=== PATIENT | female | born 1950 | race Caucasian/White ===

== ENCOUNTER 2022-07-08 15:57 | Observation (INO) | payer MEDICARE, SELFPAY ==
[2022-07-08] VITALS (11 sets, daily range): BP systolic 140–187; BP diastolic 65–131; PULSE 70–89; RESP 12–26; TEMP 35.7–37; O2SAT 82–100; BMI 25.6
--- NOTE | 2022-07-08 15:59 | NURSING ---
STROKE ALERT CALLED 1545, ETA IS 20 MIIN
--- NOTE | 2022-07-08 16:05 | CT_ITS ---
EXAM: CT ABDOMEN AND PELVIS WITH INTRAVENOUS CONTRAST CLINICAL INDICATION: lower abd pain TECHNIQUE: Helically acquired images were obtained of the abdomen and pelvis with intravenous contrast. This CT exam was performed using one or more of the following dose reduction techniques: automated exposure control, adjustment of the mA and/or kV according to patient size, and/or use of iterative reconstruction technique. CONTRAST: IV 100mL [id number] COMPARISON: 09/05/2014 FINDINGS: LOWER THORAX: Unremarkable. Lung bases are clear. No cardiomegaly. No significant pericardial effusion. ABDOMEN: LIVER: Unremarkable. Homogeneous. No focal mass. GALLBLADDER AND BILE DUCTS: Unremarkable. No calcified gallstones. No gallbladder distention or wall edema. No intra- or extrahepatic biliary ductal dilation. PANCREAS: Unremarkable. No focal cystic or solid mass. SPLEEN: Unremarkable. Normal size without focal cystic or solid mass. ADRENALS: Unremarkable. No nodules. KIDNEYS AND URETERS: Unremarkable. Normal renal size and position. No hydronephrosis. STOMACH AND BOWEL: Unremarkable. No stomach or bowel distention. No focal inflammatory change. PELVIS: APPENDIX: No evidence of acute appendicitis. BLADDER: Unremarkable. REPRODUCTIVE: Unremarkable as visualized. No mass. ABDOMEN and PELVIS: INTRAPERITONEAL SPACE: Unremarkable. No ascites or other fluid collection. No free air. BONES/JOINTS: Unremarkable. No suspicious lytic or blastic abnormality. SOFT TISSUES: Unremarkable. No discrete abdominal or pelvic wall hernia. VASCULATURE: Unremarkable. Abdominal aorta is non-dilated. LYMPH NODES: Unremarkable. No enlarged lymph nodes. CT/Abdomen/Pelvis W IV Cont ONLY IMPRESSION: Negative CT of the abdomen and pelvis with intravenous contrast. Electronically Signed: Gilbert Bob MD at 17:09 EDT ,
--- NOTE | 2022-07-08 16:05 | CT_ITS ---
EXAM: CT HEAD WITHOUT INTRAVENOUS CONTRAST CLINICAL INDICATION: confusion TECHNIQUE: Multiple axial images were obtained of the head without intravenous contrast. This CT exam was performed using one or more of the following dose reduction techniques: automated exposure control, adjustment of the mA and/or kV according to patient size, and/or use of iterative reconstruction technique. COMPARISON: No relevant prior studies available. FINDINGS: BRAIN AND EXTRA-AXIAL SPACES: Ventricular system and cortical sulci are at the upper limits of normal in size. No intra- or extra-axial hemorrhage. No evidence of acute infarct. No intracranial mass or mass effect. There is preservation of the harrison/white matter interface. Posterior fossa structures are unremarkable. Basal cisterns are patent. BONES/JOINTS: Unremarkable. No discrete lytic or blastic abnormalities. SINUSES: Unremarkable as visualized. Clear. MASTOID AIR CELLS: Unremarkable. Clear. ORBITS: Visualized globes, extraocular muscles, optic nerves and retrobulbar fat appear unremarkable. CT/Brain/Head without Contrast IMPRESSION: No acute findings in the head/brain. Electronically Signed: Gilbert Bob MD at 17:01 EDT ,
--- NOTE | 2022-07-08 16:07 | EDS_ITS ---
HPI History of Present Illness Chief Complaint: General Illness Informant: patient Narrative Narrative: Patient presents 1600 by EMS after family called because she is confused and having abdominal pain. Apparently she woke up this way, she usually is alert and oriented x3, this is very unusual for her. EMS called a prehospital stroke alert because she was confused, very hypertensive, and was unable to perform test for upper extremity pronator drift. They detected no lateralizing findings. I saw the patient in the EMS bay upon arrival. Limited history due to the patient being confused, but she is pointing to her left lower quadrant saying she is in extreme pain and moaning. [facility] Medical History (Updated 07/08/22 @ 17:[address] Danyel Case MD) Depression Medical History unable to obtain unable to obtain Home Medications escitalopram oxalate 10 mg tablet 15 mg PO DAILY 09/01/14 [History Last Taken 09/05/14 08:00] ciprofloxacin HCl 250 mg tablet 250 mg PO BID ##10 09/03/14 [Rx Last Taken 09/05/14 08:00] metronidazole 500 mg tablet 500 mg PO Q8H #15 tabs 09/03/14 [Rx Last Taken 09/05/14 13:00] oxycodone 5 mg tablet 5 mg PO Q4H PRN PRN Moderate Pain (pain scale 4-5) ##20 09/03/14 [Rx Last Taken 09/05/14 17:00] ondansetron HCl 8 mg tablet 8 mg PO Q8H PRN PRN Nausea/Vomiting ##14 09/07/14 [Rx Last Taken Unknown] zolpidem 5 mg tablet 5 mg PO QHS PRN PRN Insomnia ##20 09/07/14 [Rx Last Taken Unknown] amitriptyline 50 mg tablet 50 mg 07/08/22 [History Last Taken Unknown] naproxen 500 mg tablet 500 mg 07/08/22 [History Last Taken Unknown] Allergy/AdvReac Type Severity Reaction Status Date / Time Penicillins AdvReac Rash Verified 09/05/14 20:16 Social History Smoking Status: Never smoker ROS ROS ED Review of Systems ROS Unobtainable: due to mental status Gastrointestinal Gastrointestinal: Reports abdominal pain EXAM Physical Exam Const Vital Signs: 07/08/22 15:58 07/08/22 16:05 07/08/22 17:50 Temperature 96.3 F L Temperature Source Temporal Pulse Rate 82 89 Respiratory Rate 19 H 26 H Blood Pressure 187/131 H 156/65 H Blood Pressure Mean 149 95 Pulse Ox 96 99 Oxygen Delivery Method Room Air Oxygen Flow Rate (L/min) 07/08/22 17:03 07/08/22 17:04 07/08/22 17:37 Temperature Temperature Source Pulse Rate 73 82 Respiratory Rate 16 17 Blood Pressure 180/90 H 164/81 H Blood Pressure Mean 120 108 Pulse Ox 82 96 96 Oxygen Delivery Method Room Air Nasal Cannula Nasal Cannula Oxygen Flow Rate (L/min) 4 4 Positive well nourished and well developed Constitutional Narrative: Acute painful distress, keenly alert. Confused. General Appearance ED: well developed HEENT Reports moist mucous membranes normocephalic and atraumatic Eyes PERRL and EOMs intact bilaterally Neck full ROM and supple Chest Wall inspection of chest normal and palpation of chest normal Resp normal respiratory effort and clear to auscultation bilaterally Resp Narrative: Tachypnea, moaning and screaming in pain, equal breath sounds bilaterally trachea midline otherwise sounds clear. Cardio regular rate, regular rhythm and no murmurs Rate: Negative for tachycardic GI non-distended GI Narrative: Extremely tender suprapubic and left lower quadrant with voluntary guarding, nontender above throughout. No pulsatile mass palpable. During exam, performed ultrasound of the abdomen, very limited view, I am not able to visualize the aorta. I do visualize the liver, and the right kidney there is no free fluid in Morison's pouch. Auscultation: normoactive bowel sounds Palpation: soft Back/Spine no CVA tenderness Back/Spine Narrative: Normal inspection of back General Back: other FROM Extremity normal to inspection Extremity Narrative: Warm feet with brisk cap refill all toes, not able to palpate pulses because patient will not stop moving her legs. Intact bilateral 2+ symmetric radial pulses. General Extremety ED: Negative for edema, pulses abnormal or tenderness General Extremity: Negative for edema or pulses abnormal Neuro CN's II-XII intact bilaterally and no sensory deficits noted Neuro Narrative: Oriented to person only. She is moving all 4 extremities, she can follow some commands, but not all. Grossly nonlateralizing neurologic exam. Sensorium / Orientation: awake, alert and orientation impaired Skin no rashes or lesions noted and no wounds MDM MDM MDM Narrative Medical decision making narrative: I canceled the stroke alert since the patient does not appear to be having an acute stroke, nor would she be a thrombolytic candidate anyway. I did still obtain a CT of the head, as well as a CT of the abdomen/pelvis with IV contrast, I reviewed prior labs she has not had any since 2014, but I discussed with staff and CT to get imaging obtained stat before we wait for labs. This was done. I reviewed the images of her head and abdomen/pelvis, and frankly they all look completely unremarkable. I reevaluated the patient, she is still moaning and fairly hysterical after giving her fentanyl. More analgesics ordered. Her sister is here now. She states that she has done this several times in the past, and gets hysterical and panicky over a bellyache. She also states she has done this in the past for pity. Additionally, she states she has overdosed in the past but cannot get an answer from the patient about whether she took her pills or not this morning, in the past the sister states she has done this with her antidepressants. Asking the patient again orientation questions, she knows that she is here in the hospital in [place], [place]. She would not answer the year/timing. She is extremely anxious, still tachypneic and moaning, denying dyspnea. She states that her abdomen still hurts and she is hyperventilating and moaning. Nursing to give morphine and dicyclomine, still awaiting official results of CTs, I reviewed her chest x-ray 1 view on my interpretation is normal without pneumothorax, infiltrate/pneumonia, or widened mediastinum. Nurses placed a Bolton, there is good urine output it is normal-appearing, and the urinalysis shows no signs of infection. My interpretation of the both CT head and abdomen/pelvis is in agreement with that of the radiologist. Basically negative for any acute. Urinalysis neg ative, the rest of her labs are negative. I reevaluated patient after the morphine and dicyclomine. She states her abdomen is a lot better. I reexamined her abdomen, she is not guarding or having rebound tenderness, but she is simply moaning and hyperventilating and cannot tell me yes or no if she still has tenderness or not. She is extremely hypertensive, so I am treating that. She is not hypoxic. Again nonlateralizing neurologic exam, but seems to some degree encephalopathic for unclear reasons. Her EKG and labs are inconsistent with an acute amitriptyline overdose, she does appear to be on amitriptyline according to the bottles of medications that were brought with her, in addition to escitalopram and Naprosyn. I sent for a lactate, and alcohol, and a urine drug screen; her focal complaint of left lower quadrant abdominal pain is inconsistent with acute mesenteric ischemia. Nursing went to treat her with hydralazine, but now her blood pressure is 156/65 prior to treatment, so we held it. The patient is less hysterical, but very confused, and now tells me that she did not sleep well last night can she have something for sleeping, but she still cannot answer direct questions appropriately. She needs to be admitted for further observation and possible testing, I think this is less likely to be a brainstem stroke, but possibly an MRI of the brain urgently not emergently could be helpful as well. She does not have definite cortical symptoms or aphasia, so I do not think she needs emergent vascular imaging. History & Record Review Discussion w/independent historian: EMS personnel, Patient and Family Additional record(s) reviewed:: Prior ED visit (2014, abd pain/n/v) and Prior l abs Lab Data Attestation: I reviewed the patient's lab results. Labs: Laboratory Results - last 24 hr 07/08/22 07/08/22 07/08/22 15:52 15:52 16:36 WBC 10.3 RBC 4.24 Hgb 12.8 Hct 38.6 MCV 91.0 MCH 30.2 MCHC 33.2 RDW Std Deviation 44.3 H RDW Coeff of Gus 13.3 Plt Count 272 MPV 9.8 Immature Gran % (Auto) 0.500 Neut % (Auto) 84.8 H Lymph % (Auto) 9.7 L [place] % (Auto) 4.5 Eos % (Auto) 0.1 Baso % (Auto) 0.4 Absolute Neuts (auto) 8.7 H Absolute Lymphs (auto) 0.99 Nucleated RBC % 0 Sodium 140 Potassium 4.1 Chloride 109 H Carbon Dioxide 25.0 Anion Gap 6 BUN 20 H Creatinine 0.49 L Estim Creat Clear Calc 37.24 Est GFR (MDRD) Af Amer 157 Est GFR (MDRD) Non-Af 130 BUN/Creatinine Ratio 40.5 H Glucose 115 H Calcium 9.3 Total Bilirubin 0.90 AST 34 ALT 63 H Alkaline Phosphatase 139 H Troponin I High Sens 15 Total Protein 7.2 Albumin 4.1 Globulin 3.1 Albumin/Globulin Ratio 1.3 Urine Color Yellow Urine Clarity Sl. Cloudy Urine pH 8.0 Ur Specific [place] 1.010 Urine Protein Negative Urine Glucose (UA) Normal Urine Ketones 15 H Urine Occult Blood Negative Urine Nitrite Negative Urine Bilirubin Negative Urine Urobilinogen Normal Ur Leukocyte Esterase Negative Urine RBC 0 SEEN Urine WBC 0 SEEN Ur Squamous Epith Cells 0-5 SEEN Amorphous Sediment 3+ PHOS Urine Bacteria 0 SEEN Urine Mucus 0 SEEN Radiography Chest X-Ray - ED: 1 View, Read by ED Physician and No Infiltrates Diagnostic Testing: Clinical Impression(s) from Imaging Studies Abdomen/Pelvis CT 07/08/22 16:05 IMPRESSION: Negative CT of the abdomen and pelvis with intravenous contrast. Electronically Signed: Gilbert Bob MD at 17:09 EDT , Brain CT 07/08/22 16:05 IMPRESSION: No acute findings in the head/brain. Electronically Signed: Gilbert Bob MD at 17:01 EDT , Chest X-Ray 07/08/22 16:40 IMPRESSION: No radiographic evidence of acute cardiopulmonary disease. Electronically Signed: Gilbert Bob MD at 17:09 EDT , Rhythm Strip Rhythm Strip: Sinus Rhythm Rate: 85 Ectopy: None EKG Initial EKG: Attestation: I personally reviewed and interpreted this EKG as follows: Interpretation: Sinus Rhythm and No Acute Injury Pattern Comments: nml EKG Management Discussion w/another healthcare provider: Hospitalist Discharge Plan Triage Chief Complaint: General Illness ED Provider: Danyel Case Dx/Rx/DC Orders Clinical Impression: Encephalopathy acute, Abdominal pain, acute, left lower quadrant, Accelerated hypertension Prescriptions: No Action escitalopram oxalate 10 MG tablet 15 mg PO DAILY Label Comments: mood stabilizer oxycodone 5 MG tablet 5 mg PO Q4H PRN PRN (Reason: Moderate Pain (pain scale 4-5)) Qty: 20 0RF Label Comments: moderate pain metronidazole 500 MG tablet 500 mg PO Q8H Qty: 15 0RF Label Comments: antibiotic ciprofloxacin HCl 250 MG tablet 250 mg PO BID Qty: 10 0RF Label Comments: antibiotic ondansetron HCl 8 MG tablet 8 mg PO Q8H PRN PRN (Reason: Nausea/Vomiting) Qty: 14 0RF Label Comments: nausea zolpidem 5 MG tablet 5 mg PO QHS PRN PRN (Reason: Insomnia) Qty: 20 0RF Label Comments: to help you sleep amitriptyline 50 mg Tablet 50 mg naproxen 500 mg tablet 500 mg Label Comments: TAKE 1 TABLET BY MOUTH TWICE DAILY NEEDED FOR PAIN, take this medication WITH FOOD Primary Care Provider: Care Physician,No Primary Referrals: Care Physician,No Primary [Primary Care Provider] - Disposition Disposition: Acute Care [facility]
[2022-07-08] MEDS: Ondansetron 4 MG/2 ML Vial IV (16:08)
[2022-07-08] MEDS: fentaNYL 100 MCG/2 ML Ampul 25 MCG IV (16:08)
[2022-07-08] MEDS: 0.9% Normal Saline 1,000 ML 1000 ML IV (16:09)
[2022-07-08 16:13] LABS: Absolute Lymphocyte Count 0.99 X10^3/uL (0.83-4.51); Absolute Neutrophil Count 8.7 X10^3/uL (2.0-7.7); Basophil# 0.04 X10^3/uL; Basophil% 0.4 % (0-1); Eosinophil# 0.01 X10^3/uL; Eosinophils% 0.1 % (0-5); Hematocrit 38.6 % (37-47); Hemoglobin 12.8 g/dL (12.0-15.0); Lymphocyte # 0.99 X10^3/ul (0.83-4.51); Lymphocyte % 9.7 % (19-41); Mean Corp Hgb Conc 33.2 g/dL (32-36); Mean Corpuscular Hgb 30.2 pg (27.0-32.0); Mean Platelet Vol. 9.8 fl (6.2-12.0); Monocyte# 0.46 X10^3/uL; Monocyte% 4.5 % (0-10); NRBC Flagged by Analyzer 0 % (0-5); Neutrophil % 84.8 % (47-70); Platelet Count 272 K/mm3 (150-450); RBC Distribution Width CV 13.3 % (11.6-14.6); RBC Distribution Width SD 44.3 fl (35.1-43.9); Red Blood Count 4.24 M/mm3 (4.2-5.4); White Blood Count 10.3 K/mm3 (4.4-11.0)
--- NOTE | 2022-07-08 16:40 | RAD_ITS ---
EXAM: XR CHEST, 1 VIEW CLINICAL INDICATION: pain TECHNIQUE: Frontal view of the chest. COMPARISON: 01/21/2014 FINDINGS: LUNGS AND PLEURAL SPACES: Unremarkable. No consolidation or edema. No pneumothorax. No effusion. HEART: Unremarkable. Cardiac silhouette not enlarged. MEDIASTINUM: Central airways and mediastinal contour are unremarkable. BONES/JOINTS: Unremarkable. SOFT TISSUES: Unremarkable. RAD/Chest 1 View (Portable) IMPRESSION: No radiographic evidence of acute cardiopulmonary disease. Electronically Signed: Gilbert Bob MD at 17:09 EDT ,
[2022-07-08 16:41] LABS: Bacteria 0 SEEN /hpf (None Seen); Mucous, Urine 0 SEEN /hpf (<or=2+); Red Blood Cells-Urine 0 SEEN /hpf (0-5); White Blood Cells 0 SEEN /hpf (0-5)
[2022-07-08 16:43] LABS: ALB/GLOB Ratio 1.3 RATIO (0.9-2.4); AST(SGOT) 34 U/L (15-37); Alanine Aminotransfer ALT/SGPT 63 U/L (13-56); Albumin, Serum 4.1 g/dL (3.2-5.0); Alkaline Phosphatase 139 U/L (45-117); Anion Gap 6 (5-15); BUN 20 mg/dL (7-18); BUN/Creat Ratio 40.5 RATIO (10-20); Calcium,Total 9.3 mg/dL (8.5-10.1); Chloride 109 mmol/L (98-107); Creatinine, Serum 0.49 mg/dL (0.55-1.02); EST Glomerular Filtration Rate 130 mL/min (>60); Est Glom Filt Rate - Afr Amer 157 mL/min (>60); Estimated Creatinine Clearance 37.24 ml/min; Globulin 3.1 g/dL (2.2-4.2); Glucose 115 mg/dL (74-106); Potassium 4.1 mmol/L (3.5-5.1); Protein, Total 7.2 g/dL (6.4-8.2); Sodium Level 140 mmol/L (136-145); Troponin-I HS 15 pg/mL (3.0-54.0)
[2022-07-08 16:44] LABS: Color, Urine Yellow (Yellow); Glucose, Dipstick Normal (Normal); Ketone-Dipstick 15 mg/dl (Negative); Leukocyte Esterase-Dipstick Negative /ul (Negative); Nitrite-Dipstick Negative (Negative); Occult Blood-Urine Negative /ul (Negative); Protein-Dipstick Negative (Negative); Urine Bilirubin Dipstick Negative (Negative); Urine Clarity Sl. Cloudy (Clear); Urine Urobilinogen Normal (Normal)
[2022-07-08 16:50] LABS: Amorphous Sediment 3+ PHOS; Squamous Epithelial Cells - UA 0-5 SEEN /hpf (5-10)
[2022-07-08] MEDS: Dicyclomine 20 MG/2 ML Vial 10 MG IM (16:53)
[2022-07-08] MEDS: Morphine 4 MG/ML Syringe IV (16:53)
--- NOTE | 2022-07-08 17:49 | ED.RN ---
Per Dr. Case, Hydralazine to be held. BP150/65.
--- NOTE | 2022-07-08 17:58 | NURSING ---
DR LAKSHMI ECHOLS
[2022-07-08 18:06] LABS: Lactic Acid 0.5 mmol/L (0.4-1.9)
--- NOTE | 2022-07-08 18:10 | HP.PCM.HOS_ITS ---
HPI - General General Date of Admission: 07/08/22 Date of Service: 07/08/22 Chief Complaint: Altered mental status/abdominal pain HPI Narrative SANG HGOSH, is a 72 F who presented to the emergency department at [facility] on 07/08/2022 with altered mental status and abdominal pain. Patient presented at 1600 via squad after family called as the patient was markedly confused and complaining abdominal pain. She evidently woke up that way. Family reports typically she is alert and oriented x3 and her current mental status is very unusual for her. Initially prehospital stroke alert was called because of confusion, hypertension and the patient was unable to perform testing for upper extremity pronator drift. No lateralizing defects were found via EMS. On initial presentation the patient was moaning and complaining of abdominal pain but was extremely sleepy and markedly confused. She was unable to participate in HPI as she was still extremely somnolent and did awaken briefly to sternal rub and communicated some with both her sister and me but then quickly drifted back to sleep. Her sister did report prior to my walking in the room she apologized to her and stated she just wanted to sleep. At the time of my evaluation she did admit to taking pills that were red however was unable to tell me what they were or how many she took. Family is currently searching the home to see if they can find a matching pill bottle or pills. Family will let us know if they can figure out what she took. Her sister did admit approximately 2 years ago she had an intentional overdose and was treated at that time. Her sister states her brother's dementia has had a significant impact on her mental health. Vital signs at the time of presentation demonstrated temperature of 96.3, blood pressure 187/131 with a recheck of 180/90. Hydralazine was ordered however when they walked in the room her blood pressure was down to 156/65. The patient does not take antihypertensives at home. Respiratory rate was 19 and oxygen saturations were 96% on room air. When she was more somnolent her oxygen saturations dropped some to 82% she was placed on nasal cannula with improvement to 100% on 4 L. Her CBC is unremarkable. ABG was performed and showed a pH of 7.36/PCO2 of 44/PO2 of 138 on 4 L with a sat of 99%. Chemistry panel was unremarkable. Glucose was 115. Lactic acid was 0.5. ALT was mildly elevated at 63. Ammonia was 15. Troponin was 15. UA is unremarkable other than [address] of the abdomen pelvis is completely within normal limits. CT of the brain showed no acute findings. Chest x-ray was unremarkable for any acute cardiopulmonary disease. [facility] Medical History Anxiety Colitis Depression Diverticulitis GERD (gastroesophageal reflux disease) HLD (hyperlipidemia) Hyperglycemia Insomnia Previous known suicide attempt PTSD (post-traumatic stress disorder) Medical History unable to obtain Home Medications escitalopram oxalate 10 mg tablet 15 mg PO DAILY 09/01/14 [History Last Taken 09/05/14 08:00] ciprofloxacin HCl 250 mg tablet 250 mg PO BID ##10 09/03/14 [Rx Last Taken 09/05/14 08:00] metronidazole 500 mg tablet 500 mg PO Q8H #15 tabs 09/03/14 [Rx Last Taken 09/05/14 13:00] oxycodone 5 mg tablet 5 mg PO Q4H PRN PRN Moderate Pain (pain scale 4-5) ##20 09/03/14 [Rx Last Taken 09/05/14 17:00] ondansetron HCl 8 mg tablet 8 mg PO Q8H PRN PRN Nausea/Vomiting ##14 09/07/14 [Rx Last Taken Unknown] zolpidem 5 mg tablet 5 mg PO QHS PRN PRN Insomnia ##20 09/07/14 [Rx Last Taken Unknown] amitriptyline 50 mg tablet 50 mg 07/08/22 [History Last Taken Unknown] naproxen 500 mg tablet 500 mg 07/08/22 [History Last Taken Unknown] Allergy/AdvReac Type Severity Reaction Status Date / Time Penicillins AdvReac Rash Verified 09/05/14 20:16 Family History (Updated 07/08/22 @ 18:[address] Yvette Parrish DO) Other Dementia no surgical history Social History (Updated 07/08/22 @ 18:[address] Yvette Parrish DO) household members: family housing: house other: Lives with one of her sisters who is unmarried Smoking Status: Never smoker alcohol intake: never substance use type: does not use ROS Review of Systems ROS Unobtainable: due to mental status Vital Signs Vital Signs Vital Signs: 07/08/22 15:58 07/08/22 16:05 07/08/22 17:50 Temperature 96.3 F L Temperature Source Temporal Pulse Rate 82 89 Respiratory Rate 19 H 26 H Blood Pressure 187/131 H 156/65 H Blood Pressure Mean 149 95 Pulse Ox 96 99 Oxygen Delivery Method Room Air Oxygen Flow Rate (L/min) 07/08/22 17:03 07/08/22 17:04 07/08/22 17:37 Temperature Temperature Source Pulse Rate 73 82 Respiratory Rate 16 17 Blood Pressure 180/90 H 164/81 H Blood Pressure Mean 120 108 Pulse Ox 82 96 96 Oxygen Delivery Method Room Air Nasal Cannula Nasal Cannula Oxygen Flow Rate (L/min) 4 4 Weight Weight: 61.5 kg Body Mass Index (BMI) 25.6 Physical Exam Const no apparent distress and well nourished Constitutional Narrative: Extremely somnolent, elderly, white female lying in bed sleeping however does awaken to sternal rub and was communicating intermittently but quickly drifts back to sleep, appears comfortable, nontoxic-appearing, sister at bedside HEENT normocephalic, head/scalp atraumatic, hearing grossly normal bilaterally and moist oral mucous membranes HEENT Narrative: Dentition is poor, Mallampati is 2, no thrush Eyes PERRL, EOMs intact bilaterally and conjunctivae normal Eyes Narrative: Sclera are somewhat injected, no icterus Neck no lymphadenopathy, supple and no JVD Resp normal respiratory effort, no retractions, no use of accessory muscles and clear to auscultation bilaterally Auscultation: Negative for rales, rhonchi or wheezes Cardio regular rate, regular rhythm, S1 normal heart sound, S2 normal heart sound, no murmurs, no rub, no gallops and no clicks GI normal to inspection, nondistended, normoactive bowel sounds, soft to palpation and non-tender Extremity no clubbing, cyanosis or edema Extremity Narrative: 2+ pedal pulses Skin no rashes or lesions noted, no wounds, skin turgor normal, no jaundice, no petechiae and no mottling Neuro CN's II-XII intact bilaterally, moves all extremities and no focal motor deficits Neuro Narrative: Patient was extremely somnolent however did awaken to sternal rub and was able to communicate some but quickly drifts back to sleep, was able to move all extremities symmetrically without any focal deficits and cranial nerves appear to be intact Speech: speech normal Psych Psych Narrative: Patient apologetic to her sister during our conversation prior to drifting back to sleep Results Lab / Micro Data Attestation: I reviewed the patient's lab results. Result Diagrams: 07/08/22 15:52 07/08/22 15:52 Labs: Laboratory Results - last 24 hr 07/08/22 15:52: WBC 10.3, RBC 4.24, Hgb 12.8, Hct 38.6, MCV 91.0, MCH 30.2, MCHC 33.2, RDW Std Deviation 44.3 H, RDW Coeff of Gus 13.3, Plt Count 272, MPV 9.8, Immature Gran % (Auto) 0.500, Neut % (Auto) 84.8 H, Lymph % (Auto) 9.7 L, [place] % (Auto) 4.5, Eos % (Auto) 0.1, Baso % (Auto) 0.4, Absolute Neuts (auto) 8.7 H, Absolute Lymphs (auto) 0.99, Nucleated RBC % 0 07/08/22 15:52: Sodium 140, Potassium 4.1, Chloride 109 H, Carbon Dioxide 25.0, Anion Gap 6, BUN 20 H, Creatinine 0.49 L, Estim Creat Clear Calc 37.24, Est GFR (MDRD) Af Amer 157, Est GFR (MDRD) Non-Af 130, BUN/Creatinine Ratio 40.5 H, Glucose 115 H, Calcium 9.3, Total Bilirubin 0.90, AST 34, ALT 63 H, Alkaline Phosphatase 139 H, Troponin I High Sens 15, Total Protein 7.2, Albumin 4.1, Globulin 3.1, Albumin/Globulin Ratio 1.3 07/08/22 16:36: Urine Color Yellow, Urine Clarity Sl. Cloudy, Urine pH 8.0, Ur Specific [place] 1.010, Urine Protein Negative, Urine Glucose (UA) Normal, Urine Ketones 15 H, Urine Occult Blood Negative, Urine Nitrite Negative, Urine Bilirubin Negative, Urine Urobilinogen Normal, Ur Leukocyte Esterase Negative, Urine RBC 0 SEEN, Urine WBC 0 SEEN, Ur Squamous Epith Cells 0-5 SEEN, Amorphous Sediment 3+ PHOS, Urine Bacteria 0 SEEN, Urine Mucus 0 SEEN 07/08/22 16:36: Ur Drug Screen Comment 07/08/22 17:23: Lactic Acid 0.5 Rhythm Strip Rhythm Strip: Sinus Rhythm Rate: 85 Ectopy: None Radiology Impression Abdomen/Pelvis CT 07/08/22 16:05 IMPRESSION: Negative CT of the abdomen and pelvis with intravenous contrast. Electronically Signed: Gilbert Bob MD at 17:09 EDT , Brain CT 07/08/22 16:05 IMPRESSION: No acute findings in the head/brain. Electronically Signed: Gilbert Bob MD at 17:01 EDT , Chest X-Ray 07/08/22 16:40 IMPRESSION: No radiographic evidence of acute cardiopulmonary disease. Electronically Signed: Gilbert Bob MD at 17:09 EDT , Assessment & Plan Assessment/Plan (1) Toxic metabolic encephalopathy: (2) Elevated blood pressure reading: (3) Abdominal pain, acute, left lower quadrant: PLAN: Plan Toxic/metabolic encephalopathy -Initially unclear however in reviewing the patient and her sister at the bedside it appears that she is finally admitted that she took an overdose of a red pill -Family is doing a search of the medications that are in the home to ascertain better what this is -Patient stated she just wanted to sleep -Has previous suicide attempt approximately 2 years ago per sister -No significant abnormal lab findings but does have elevated blood pressure -We will obtain MRI to rule out press however suspect this is all going to be related to the above -may able to cancel tomorrow if mental status is improved -Suicide precautions -Will need to be evaluated by crisis when should her mental status improves -ABG and ammonia level are unremarkable -Toxicology screen is pending Elevated blood pressure reading -Patient is not on antihypertensives at baseline -Markedly elevated blood pressure on presentation -As needed hydralazine is available for systolic greater than 160 -We will continue to monitor and if consistently high may need additional medication for blood pressure prior to discharge Abdominal pain-left lower quadrant -Resolved -CT of the abdomen pelvis were unremarkable -Patient does have history of diverticulitis Depression/anxiety/PTSD -Previous suicide attempt approximately 2 years ago -Suspicious that current presentation may be the same -Hold home amitriptyline and Lexapro for now -We will need crisis to evaluate when patient is medically stable for possible discharge to psychiatric care GERD -Patient does not take any chronic medications -Follow-up as an outpatient History of diverticulitis -No findings consistent with this on CT of the abdomen and pelvis at this time -Currently denying any abdominal pain DVT prophylaxis -Lovenox daily CODE STATUS -Full code Charges/Coding Visit Charges Inpatient E&M: 92442 Init Hosp L2
--- NOTE | 2022-07-08 18:15 | NURSING ---
PCU OBS LAKSHMI ENCEPHALOPATHY, ACC HTN
[2022-07-08 18:21] LABS: Amphetamine Urine VISTA NEGATIVE (<1000 ng/mL); Barbiturate Urine VISTA NEGATIVE (< 200 ng/mL); Benzodiazepine Urine VISTA NEGATIVE (< 200 ng/mL); Cocaine Urine VISTA NEGATIVE (< 300 ng/mL); Ecstacy Urine VISTA POSITIVE (< 500 ng/mL); Methadone Urine VISTA NEGATIVE (< 300 ng/mL); PCP Urine VISTA NEGATIVE (< 25 ng/mL); THC Urine VISTA NEGATIVE (< 50 ng/mL); Vista UDS pH Range 6
[2022-07-08 18:26] LABS: Base Excess -1 mmol/L (-2 to +2); Bicarbonate 24.8 mmol/L (22-26); Blood Gas Specimen Type ART; O2 Delivery Device Cannula; PO2 138 mmHG (75-100); SITE L Brach; SO2 99 % (95-99); Total Carbon Dioxide 26 mmol/L; pCO2 44.3 mmHg (35-45); pH 7.36 (7.35-7.45)
[2022-07-08 18:52] LABS: Alcohol, Blood (Medical)-Serum < 3.0 mg/dL
[2022-07-08] MEDS: Acetaminophen 500 MG Tablet 1000 MG PO (21:26)
[2022-07-08] MEDS: Lactated Ringers 1,000 ML 70 ML IV (21:27)
[2022-07-08] MEDS: 0.9% Saline Lock 10 ML Syringe IV ×2 (21:29→23:16)
[2022-07-08] MEDS: hydrALAZINE 20 MG/ML Vial 10 MG IV (23:04)
[2022-07-09] VITALS (11 sets, daily range): BP systolic 149–191; BP diastolic 68–89; PULSE 75–83; RESP 14–20; TEMP 36.6–37; O2SAT 94–100
--- NOTE | 2022-07-09 01:11 | EKG12_ITS ---
Test Reason : CP Blood Pressure : / mmHG Vent. Rate : 078 BPM Atrial Rate : 078 BPM P-R Int : 118 ms QRS Dur : 080 ms QT Int : 416 ms P-R-T Axes : 052 -06 033 degrees QTc Int : 474 ms Sinus rhythm with occasional Premature ventricular complexes Otherwise normal ECG When compared with ECG of 08-JUL-2022 16:10, MANUAL COMPARISON REQUIRED, DATA IS UNCONFIRMED Confirmed by MICHAEL OCASIO, BARNEY ([id number]), editor at large MARKOS PILLAI ([id number]) on 07/10/2022 11:46:38 AM Referred By: DR LINDA Confirmed By:BARNEY RODRIGUEZ MD
[2022-07-09] MEDS: Nitroglycerin (INPATIENT USE) 0.4 MG TAB.SUBL SL ×2 (01:52→03:10)
[2022-07-09] MEDS: 0.9% Saline Lock 10 ML Syringe IV ×3 (03:14→20:29)
--- NOTE | 2022-07-09 03:15 | NURSING ---
Pt more alert/oriented, and able to hold longer conversation, but this RN still notice some confusion during conversation and pt would say inappropriate stuff at times. This RN asked if pt could remember what happened and what brought her to the hospital, pt states she took some red pills at home to help her sleep at night, but they were not helping her sleep so she kept taking the pills thinking they would help her, then after awhile her abdominal pain started, pt was pointing to her right upper quadrant. Pt could not name the red pills she took.
[2022-07-09 03:17] LABS: Troponin-I HS 17 pg/mL (3.0-54.0)
[2022-07-09 03:58] LABS: Absolute Lymphocyte Count 1.34 X10^3/uL (0.83-4.51); Absolute Neutrophil Count 5.7 X10^3/uL (2.0-7.7); Basophil# 0.05 X10^3/uL; Basophil% 0.6 % (0-1); Eosinophil# 0.04 X10^3/uL; Eosinophils% 0.5 % (0-5); Hematocrit 30.7 % (37-47); Hemoglobin 10.7 g/dL (12.0-15.0); Lymphocyte # 1.34 X10^3/ul (0.83-4.51); Lymphocyte % 17.2 % (19-41); Mean Corp Hgb Conc 34.9 g/dL (32-36); Mean Corpuscular Hgb 30.8 pg (27.0-32.0); Mean Corpuscular Volume 88.5 fL (81-99); Mean Platelet Vol. 9.4 fl (6.2-12.0); Monocyte# 0.67 X10^3/uL; Monocyte% 8.6 % (0-10); NRBC Flagged by Analyzer 0 % (0-5); Neutrophil # 5.65 X10^3/uL (2.7-7.7); Neutrophil % 72.7 % (47-70); Platelet Count 233 K/mm3 (150-450); RBC Distribution Width CV 13.2 % (11.6-14.6); RBC Distribution Width SD 42.8 fl (35.1-43.9); Red Blood Count 3.47 M/mm3 (4.2-5.4); White Blood Count 7.8 K/mm3 (4.4-11.0)
[2022-07-09 05:02] LABS: Troponin-I HS 15 pg/mL (3.0-54.0)
[2022-07-09] MEDS: Senna/Docusate Sodium 1 Tablet 2 TABLET PO (05:05)
[2022-07-09] MEDS: Acetaminophen 500 MG Tablet 1000 MG PO ×3 (05:05→22:35)
[2022-07-09 07:50] LABS: ALB/GLOB Ratio 1.3 RATIO (0.9-2.4); AST(SGOT) 23 U/L (15-37); Alanine Aminotransfer ALT/SGPT 44 U/L (13-56); Albumin, Serum 3.3 g/dL (3.2-5.0); Alkaline Phosphatase 113 U/L (45-117); Anion Gap 6 (5-15); BUN 12 mg/dL (7-18); BUN/Creat Ratio 25.5 RATIO (10-20); Calcium,Total 8.4 mg/dL (8.5-10.1); Chloride 112 mmol/L (98-107); Creatinine, Serum 0.47 mg/dL (0.55-1.02); EST Glomerular Filtration Rate 137 mL/min (>60); Est Glom Filt Rate - Afr Amer 166 mL/min (>60); Estimated Creatinine Clearance 37.24 ml/min; Globulin 2.5 g/dL (2.2-4.2); Glucose 111 mg/dL (74-106); Phosphorus 2.4 mg/dL (2.5-4.9); Potassium 3.1 mmol/L (3.5-5.1); Protein, Total 5.8 g/dL (6.4-8.2); Sodium Level 141 mmol/L (136-145); Thyroid Stim Hormone (TSH) 0.29 uIU/mL (0.358-3.74); Troponin-I HS 15 pg/mL (3.0-54.0)
--- NOTE | 2022-07-09 07:51 | PN.HOSP_ITS ---
Reason for Visit Reason for Visit: Diagnoses Other toxic encephalopathy (07/08/22) Elevated blood-pressure reading, without diagnosis of hypertension (07/08/22) Left lower quadrant pain (07/08/22) Follow-up for drug overdose. Objective Data Objective Data Vital Signs: Vital Signs Temp Pulse Resp BP Pulse Ox O2 Del Method O2 Flow Rate 97.9 F 76 18 156/68 H 98 Room Air 4 07/09/22 03:10 07/09/22 03:10 07/09/22 03:10 07/09/22 03:10 07/09/22 03:10 07/09/22 03:12 07/08/22 18:04 Oxygen Flow Rate (L/min) 4 Oxygen Delivery Method Room Air Weight: 127 lb 3.307 oz Body Mass Index (BMI) 25.6 Intake & Output: Intake and Output for Last 24 Hours 07/07/22 07/08/22 07/09/22 23:59 23:59 23:59 Intake Total 1000 / 1000 120 / 120 Output Total 1000 / 1000 Balance 1000 / 1000 -880 / -880 Lab / Micro Data Result Diagrams: 07/09/22 03:40 07/09/22 06:49 Labs: Laboratory Results - last 24 hr 07/08/22 15:52: WBC 10.3, RBC 4.24, Hgb 12.8, Hct 38.6, MCV 91.0, MCH 30.2, MCHC 33.2, RDW Std Deviation 44.3 H, RDW Coeff of Gus 13.3, Plt Count 272, MPV 9.8, Immature Gran % (Auto) 0.500, Neut % (Auto) 84.8 H, Lymph % (Auto) 9.7 L, [place] % (Auto) 4.5, Eos % (Auto) 0.1, Baso % (Auto) 0.4, Absolute Neuts (auto) 8.7 H, Absolute Lymphs (auto) 0.99, Nucleated RBC % 0 07/08/22 15:52: Sodium 140, Potassium 4.1, Chloride 109 H, Carbon Dioxide 25.0, Anion Gap 6, BUN 20 H, Creatinine 0.49 L, Estim Creat Clear Calc 37.24, Est GFR (MDRD) Af Amer 157, Est GFR (MDRD) Non-Af 130, BUN/Creatinine Ratio 40.5 H, Glucose 115 H, Calcium 9.3, Total Bilirubin 0.90, AST 34, ALT 63 H, Alkaline Phosphatase 139 H, Troponin I High Sens 15, Total Protein 7.2, Albumin 4.1, Globulin 3.1, Albumin/Globulin Ratio 1.3 07/08/22 16:36: Urine Color Yellow, Urine Clarity Sl. Cloudy, Urine pH 8.0, Ur Specific [place] 1.010, Urine Protein Negative, Urine Glucose (UA) Normal, Urine Ketones 15 H, Urine Occult Blood Negative, Urine Nitrite Negative, Urine Bilirubin Negative, Urine Urobilinogen Normal, Ur Leukocyte Esterase Negative, Urine RBC 0 SEEN, Urine WBC 0 SEEN, Ur Squamous Epith Cells 0-5 SEEN, Amorphous Sediment 3+ PHOS, Urine Bacteria 0 SEEN, Urine Mucus 0 SEEN 07/08/22 16:36: Urine Opiates Screen NEGATIVE, Urine Methadone Screen NEGATIVE, Ur Barbiturates Screen NEGATIVE, Ur Phencyclidine Scrn NEGATIVE, Ur Amphetamines Screen NEGATIVE, MDMA (Ecstasy) Screen POSITIVE H, U Benzodiazepines Scrn NEGATIVE, Urine Cocaine Screen NEGATIVE, U Cannabinoids Screen NEGATIVE, Ur Drug Screen Comment 07/08/22 17:23: Lactic Acid 0.5 07/08/22 18:09: Ethyl Alcohol < 3.0 07/08/22 18:09: Ammonia 15.0 07/09/22 01:35: Troponin I High Sens 17 07/09/22 03:40: WBC 7.8, RBC 3.47 L, Hgb 10.7 L, Hct 30.7 L, MCV 88.5, MCH 30.8, MCHC 34.9 D, RDW Std Deviation 42.8, RDW Coeff of Gus 13.2, Plt Count 233, MPV 9.4, Immature Gran % (Auto) 0.400, Neut % (Auto) 72.7 H, Lymph % (Auto) 17.2 L, [place] % (Auto) 8.6, Eos % (Auto) 0.5, Baso % (Auto) 0.6, Absolute Neuts (auto) 5.7, Absolute Lymphs (auto) 1.34, Nucleated RBC % 0 07/09/22 03:40: Troponin I High Sens 15 07/09/22 06:49: Sodium 141, Potassium 3.1 L, Chloride 112 H, Carbon Dioxide 23.0, Anion Gap 6, BUN 12, Creatinine 0.47 L, Estim Creat Clear Calc 37.24, Est GFR (MDRD) Af Amer 166, Est GFR (MDRD) Non-Af 137, BUN/Creatinine Ratio 25.5 H, Glucose 111 H, Calcium 8.4 L, Phosphorus 2.4 L, Magnesium 2.0, Total Bilirubin 1.00, AST 23, ALT 44, Alkaline Phosphatase 113, Troponin I High Sens 15, Total Protein 5.8 L, Albumin 3.3, Globulin 2.5, Albumin/Globulin Ratio 1.3, TSH 0.29 L ABG Data ABG results: ABG 07/08/22 18:18 Specimen Type ART Sample Site L Brach pH 7.36 Bicarbonate Actual 24.8 Total CO2 26 Base Excess -1 O2 Saturation 99 ABG pCO2 44.3 ABG pO2 138 H Wood Test N/A O2 Delivery Device Cannula Liter Flow 4.0 Radiography Diagnostic Testing: Radiology Impression Abdomen/Pelvis CT 07/08/22 16:05 IMPRESSION: Negative CT of the abdomen and pelvis with intravenous contrast. Electronically Signed: Gilbert Bob MD at 17:09 EDT , Brain CT 07/08/22 16:05 IMPRESSION: No acute findings in the head/brain. Electronically Signed: Gilbert Bob MD at 17:01 EDT , Chest X-Ray 07/08/22 16:40 IMPRESSION: No radiographic evidence of acute cardiopulmonary disease. Electronically Signed: Gilbert Bob MD at 17:09 EDT , Rhythm Strip Rhythm Strip: Sinus Rhythm Rate: 85 Ectopy: None Physical Exam Narrative Seen and examined. Patient had MRI in the morning. Admitted with drug overdose with unknown quantity and different types of pills. Patient feels mild side and depressed and has anxiety disorder. She knows that time, date, day, her name, age, date of and simple orientation questions. Physical exam General: Alert, Oriented x3, Cooperative HEENT: Atraumatic, PERRLA, EOMI, Normocephalic Oral: No Gingival or Mucosal Lesions/ Ulcerations Neck: Supple, No JVD, Negative Carotid Bruits Lungs: Air entry diminished in bilateral lung bases. No crepitation/rhonchi Cardiovascular: Regular rate, Regular Rhythm, Normal S1, Normal S2, No murmurs Abdomen: Bowel Sounds Present, Soft, Non Tender, Non-Distended : No renal angle tenderness. No suprapubic tenderness. Extremities: No edema, Capillary Refill Less than 3 Seconds Skin: No rashes, No breakdown Musculoskeletal: No Tenderness to Palpation of Joints or Extremities Neurological: Cranial nerves II-XII grossly intact, DTR 2+/4 and Symmetrical, Neuro grossly intact Psych/Mental Status: Flat affect. Mild depressed. Assessment & Plan Assessment/Plan (1) Toxic metabolic encephalopathy: (2) Elevated blood pressure reading: (3) Abdominal pain, acute, left lower quadrant: PLAN: Plan 72-year-old female was brought to ED by EMS for confusion/altered mental status and left lower quadrant abdominal pain. She woke up on the day of admission and confused state. She also complained of moaning and pointing her into the left lower quadrant. She took multiple pills about 10-20 number, does not remember exact amount and which pills but she states her red pills. She had history of intentional overdose 2 years ago as per her sister. 1. Acute toxic/metabolic encephalopathy: Patient is admitted in PCU. She is awake alert and oriented x3 answered all simple orientation questions. MRI brain does not show acute intracranial abnormality and reported negative. Patient is medically hemodynamically stable to be related with crisis management team. Discussed with the manager rn case and mental health social worker. Suicide precaution. U tox screen positive for MDMA ecstasy.. Lactic acid, Ethyl alcohol and ammonia level normal. ABG 7.36/PCO2 44 and PO2 138 on 4 L of oxygen. TSH 0.29. Free T4 ordered 2. Elevated blood pressure: Patient not on antihypertensive medication. Patient on as needed hydralazine. Monitor BP. 3. Abdominal pain-left lower quadrant -Resolved -CT of the abdomen pelvis were unremarkable -Patient does have history of diverticulitis 4. Depression/anxiety/PTSD -Previous suicide attempt approximately 2 years ago -Suspicious that current presentation may be the same -Hold home amitriptyline and Lexapro for now GERD -Patient does not take any chronic medications -Follow-up as an outpatient History of diverticulitis -No findings consistent with this on CT of the abdomen and pelvis at this time -Currently denying any abdominal pain DVT prophylaxis -Lovenox daily CODE STATUS -Full code Charges/Coding Visit Charges Inpatient E&M: 49387 Subs Hosp L2
--- NOTE | 2022-07-09 09:30 | MRI_ITS ---
EXAM: MR HEAD WITHOUT INTRAVENOUS CONTRAST CLINICAL INDICATION: encephalopathy, CONFUSION TECHNIQUE: Multiplanar and multisequence MR images of the brain were obtained without intravenous contrast. COMPARISON: CT head without contrast 07/08/2022. FINDINGS: BRAIN AND EXTRA-AXIAL SPACES: Unremarkable. No intra- or extra-axial hemorrhage. No evidence of acute infarct. No intracranial mass or mass effect. There is preservation of the harrison/white matter interface. Posterior fossa structures are unremarkable. Ventricles are appropriate for age. No hydrocephalus. Basal cisterns are patent. SELLA: Unremarkable. Normal sella turcica, pituitary gland, infundibular stalk, optic chiasm and hypothalamus. AUDITORY SYSTEM: Unremarkable. The internal auditory canals are patent. BONES/JOINTS: Unremarkable. No discrete lytic or blastic abnormalities. SINUSES: Unremarkable as visualized. Clear. MASTOID AIR CELLS: Unremarkable as visualized. Clear. ORBITS: Unremarkable as visualized. Both globes, extraocular muscles, optic nerves and retrobulbar fat appear unremarkable. VASCULATURE: Unremarkable as visualized. Normal flow voids in the major intracranial circulation. MRI/Brain without Contrast IMPRESSION: Negative MRI brain without intravenous contrast and without significant change when compared to CT head scan of 07/08/2022. Electronically Signed: Alejandro Terrazas MD at 10:34 EDT ,
[2022-07-09] MEDS: Na Biphos/Potassium Phosphate PACKET 1 PACKET PO ×3 (11:11→22:35)
[2022-07-09] MEDS: Enoxaparin 40 MG/0.4 ML Syringe SC (11:14)
--- NOTE | 2022-07-09 14:57 | CASEMGMT ---
Physician told SW that patient is medically cleared and crisis can come and see patient. SW called crisis and made referral to [facility]. RAHEEM also faxed information. (fax number [phone]) Betty BAILEY
--- NOTE | 2022-07-09 16:17 | CASEMGMT ---
RN CM called sister Wilma Jimenez to complete RIOS form as patient is confused. RN CM explained RIOS form to sister, sister voiced understanding. Sister Wilma gave telephone consent for RIOS form and filed in chart. Patient provided copy of RIOS form. Sister had questions regarding patient's condition, RN CM advised sister that she would update patient's nurse to call with updated. Wilma voiced understanding and had no further concerns.
--- NOTE | 2022-07-09 19:02 | NURSING ---
Reviewed charting with Colleen Mustafa RN
[2022-07-09] MEDS: hydrALAZINE 20 MG/ML Vial 10 MG IV (20:29)
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
[2022-07-10 04:16] VITALS: BP 183/74; PULSE 73; RESP 15; TEMP 36.7; O2SAT 100
[2022-07-10] MEDS: 0.9% Saline Lock 10 ML Syringe IV (04:31)
[2022-07-10] MEDS: Lisinopril 5 MG Tablet PO (04:32)
[2022-07-10 04:35] VITALS: BP 183/74; PULSE 73
[2022-07-10] MEDS: hydrALAZINE 20 MG/ML Vial 10 MG IV (04:35)
[2022-07-10 06:11] LABS: Absolute Lymphocyte Count 1.18 X10^3/uL (0.83-4.51); Absolute Neutrophil Count 5.8 X10^3/uL (2.0-7.7); Basophil% 1.2 % (0-1); Eosinophil# 0.03 X10^3/uL; Eosinophils% 0.4 % (0-5); Hematocrit 40.8 % (37-47); Hemoglobin 12.4 g/dL (12.0-15.0); Lymphocyte # 1.18 X10^3/ul (0.83-4.51); Lymphocyte % 14.7 % (19-41); Mean Corp Hgb Conc 30.4 g/dL (32-36); Mean Corpuscular Hgb 30.8 pg (27.0-32.0); Mean Corpuscular Volume 101.2 fL (81-99); Mean Platelet Vol. 9.9 fl (6.2-12.0); Monocyte# 0.83 X10^3/uL; Monocyte% 10.3 % (0-10); NRBC Flagged by Analyzer 0 % (0-5); Neutrophil # 5.84 X10^3/uL (2.7-7.7); Neutrophil % 72.7 % (47-70); Platelet Count 265 K/mm3 (150-450); RBC Distribution Width CV 13.2 % (11.6-14.6); RBC Distribution Width SD 49.4 fl (35.1-43.9); Red Blood Count 4.03 M/mm3 (4.2-5.4)
[2022-07-10 06:38] LABS: AST(SGOT) 21 U/L (15-37); Alanine Aminotransfer ALT/SGPT 42 U/L (13-56); Albumin, Serum 3.1 g/dL (3.2-5.0); Alkaline Phosphatase 116 U/L (45-117); Anion Gap 6 (5-15); BUN 10 mg/dL (7-18); BUN/Creat Ratio 16.8 RATIO (10-20); Calcium,Total 8.7 mg/dL (8.5-10.1); Chloride 110 mmol/L (98-107); EST Glomerular Filtration Rate 105 mL/min (>60); Est Glom Filt Rate - Afr Amer 127 mL/min (>60); Estimated Creatinine Clearance 37.24 ml/min; Globulin 3.1 g/dL (2.2-4.2); Glucose 122 mg/dL (74-106); Potassium 3.5 mmol/L (3.5-5.1); Protein, Total 6.2 g/dL (6.4-8.2); Sodium Level 137 mmol/L (136-145)
[2022-07-10] MEDS: Na Biphos/Potassium Phosphate PACKET 1 PACKET PO (06:40)
[2022-07-10] MEDS: Acetaminophen 500 MG Tablet 1000 MG PO (06:40)
[2022-07-10 06:41] VITALS: BP 141/73; PULSE 86; RESP 15; TEMP 36.7; O2SAT 98
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
--- NOTE | 2022-07-10 07:45 | NURSING ---
sister was called and aware of transport
[2022-07-10 07:50] VITALS: O2SAT 98
--- NOTE | 2022-07-10 09:33 | PCM.DC.SUM ---
Providers Date of Admission: 07/08/22 Date of Discharge: 07/10/22 Primary Care Physician: No Primary Care Phys Reason For Visit: TOXIC/METABOLIC ENCEPHALOPATHY Diagnosis Discharge Diagnosis (1) Toxic metabolic encephalopathy: Status: Acute Code(s): G92.8 - Other toxic encephalopathy (2) Elevated blood pressure reading: Status: Acute Code(s): R03.0 - Elevated blood-pressure reading, without diagnosis of hypertension (3) Abdominal pain, acute, left lower quadrant: Status: Acute Code(s): R10.32 - Left lower quadrant pain Plan 72-year-old female was brought to ED by EMS for confusion/altered mental status and left lower quadrant abdominal pain. She woke up on the day of admission and confused state. She also complained of moaning and pointing her into the left lower quadrant. She took multiple pills about 10-20 number, does not remember exact amount and which pills but she states her red pills. She had history of intentional overdose 2 years ago as per her sister. 1. Acute toxic/metabolic encephalopathy: Patient is admitted in PCU. She is awake alert and oriented x3 answered all simple orientation questions. MRI brain does not show acute intracranial abnormality and reported negative. Patient is medically hemodynamically stable to be related with crisis management team. Discussed with the bilingual patient support caseworker and social work manager. Suicide precaution. U tox screen positive for MDMA ecstasy.. Lactic acid, Ethyl alcohol and ammonia level normal. ABG 7.36/PCO2 44 and PO2 138 on 4 L of oxygen. TSH 0.29. Free T4 ordered /2: Patient was evaluated by crisis management team yesterday. She deemed medically stable for transfer. TSH 0.29 with free T41.2. Patient evaluated thyroid function test to repeat after 3 months. She has either euthyroid sick syndrome or occult/subclinical hyperthyroidism. Laboratory Results 07/10/22 06:05: Sodium 137, Potassium 3.5, Chloride 110 H, Carbon Dioxide 21.0, Anion Gap 6, BUN 10, Creatinine 0.60, Estim Creat Clear Calc 37.24, Est GFR (MDRD) Af Amer 127, Est GFR (MDRD) Non-Af 105, BUN/Creatinine Ratio 16.8, Glucose 122 H, Calcium 8.7, Total Bilirubin 0.80, AST 21, ALT 42, Alkaline Phosphatase 116, Total Protein 6.2 L, Albumin 3.1 L, Globulin 3.1, Albumin/Globulin Ratio 1.0, Free T4 1.20 07/10/22 06:05: WBC 8.0, RBC 4.03 L, Hgb 12.4, Hct 40.8, MCV 101.2 H D, MCH 30.8, MCHC 30.4 L D, RDW Std Deviation 49.4 H, RDW Coeff of Gus 13.2, Plt Count 265, MPV 9.9, Immature Gran % (Auto) 0.700, Neut % (Auto) 72.7 H, Lymph % (Auto) 14.7 L, [place] % (Auto) 10.3 H, Eos % (Auto) 0.4, Baso % (Auto) 1.2 H, Absolute Neuts (auto) 5.8, Absolute Lymphs (auto) 1.18, Nucleated RBC % 0 2. Elevated blood pressure: Patient not on antihypertensive medication. Patient on as needed hydralazine. Monitor BP. Her BP was 188/78 got normal to 141/73. Will need either home BP monitoring or ambulatory BP monitoring to diagnose hypertension. Patient might have high blood pressure due to multiple medication/drug overdose. Follow with PCP. Continue lisinopril. 3. Abdominal pain-left lower quadrant -Resolved -CT of the abdomen pelvis were unremarkable -Patient does have history of diverticulitis 4. Depression/anxiety/PTSD -Previous suicide attempt approximately 2 years ago -Suspicious that current presentation may be the same -Hold home amitriptyline and Lexapro for now GERD -Patient does not take any chronic medications -Follow-up as an outpatient History of diverticulitis -No findings consistent with this on CT of the abdomen and pelvis at this time -Currently denying any abdominal pain DVT prophylaxis -Lovenox daily CODE STATUS -Full code Discharge medication reconciliation done. Discharge follow-up instructions completed. Discharge process discussed with the patient and all questions were answered to patient's satisfaction. Discharged to inpatient psych facility. Total time spent, exact 35 minutes on discharge meds reconciliation, examination, coordination of care with nurses and ancillary staff, review of imaging and blood test and discussion with the patient on follow-up instructions. Medications at Discharge Home Medications escitalopram oxalate 10 mg tablet 15 mg PO DAILY 09/01/14 ciprofloxacin HCl 250 mg tablet 250 mg PO BID ##10 09/03/14 metronidazole 500 mg tablet 500 mg PO Q8H #15 tabs 09/03/14 oxycodone 5 mg tablet 5 mg PO Q4H PRN PRN Moderate Pain (pain scale 4-5) ##20 09/03/14 ondansetron HCl 8 mg tablet 8 mg PO Q8H PRN PRN Nausea/Vomiting ##14 09/07/14 zolpidem 5 mg tablet 5 mg PO QHS PRN PRN Insomnia ##20 09/07/14 amitriptyline 50 mg tablet 50 mg 07/08/22 naproxen 500 mg tablet 500 mg 07/08/22 Physical Exam Narrative Seen and examined. Patient feels mild side and depressed and has anxiety disorder. Patient was seen by crisis management team. Patient is going to inpatient psych facility for further treatment. Physical exam General: Alert, Oriented x3, Cooperative HEENT: Atraumatic, PERRLA, EOMI, Normocephalic Oral: Oral mucosa moist. No Gingival or Mucosal Lesions/ Ulcerations Neck: Supple, No JVD, Negative Carotid Bruits Lungs: Air entry diminished in bilateral lung bases. No crepitation/rhonchi Cardiovascular: Regular rate, Regular Rhythm, Normal S1, Normal S2, No murmurs Abdomen: Bowel Sounds Present, Soft, Non Tender, Non-Distended : No renal angle tenderness. No suprapubic tenderness. Extremities: No edema, Capillary Refill Less than 3 Seconds Skin: No rashes, No breakdown Musculoskeletal: No Tenderness to Palpation of Joints or Extremities Neurological: Cranial nerves II-XII grossly intact, DTR 2+/4 and Symmetrical, Neuro grossly intact Psych/Mental Status: Flat affect. Mild depressed. Had suicidal drug overdose. Weight / BMI Weight Weight: 127 lb 3.307 oz Body Mass Index (BMI) 25.6 ABG / Lab / Microbiology Data Result Diagrams: 07/10/22 06:05 07/10/22 06:05 Laboratory: Laboratory Results - last 24 hr 07/10/22 06:05: Sodium 137, Potassium 3.5, Chloride 110 H, Carbon Dioxide 21.0, Anion Gap 6, BUN 10, Creatinine 0.60, Estim Creat Clear Calc 37.24, Est GFR (MDRD) Af Amer 127, Est GFR (MDRD) Non-Af 105, BUN/Creatinine Ratio 16.8, Glucose 122 H, Calcium 8.7, Total Bilirubin 0.80, AST 21, ALT 42, Alkaline Phosphatase 116, Total Protein 6.2 L, Albumin 3.1 L, Globulin 3.1, Albumin/Globulin Ratio 1.0, Free T4 1.20 07/10/22 06:05: WBC 8.0, RBC 4.03 L, Hgb 12.4, Hct 40.8, MCV 101.2 H D, MCH 30.8, MCHC 30.4 L D, RDW Std Deviation 49.4 H, RDW Coeff of Gus 13.2, Plt Count 265, MPV 9.9, Immature Gran % (Auto) 0.700, Neut % (Auto) 72.7 H, Lymph % (Auto) 14.7 L, [place] % (Auto) 10.3 H, Eos % (Auto) 0.4, Baso % (Auto) 1.2 H, Absolute Neuts (auto) 5.8, Absolute Lymphs (auto) 1.18, Nucleated RBC % 0 Radiography Diagnostic Testing: Radiology Impression Brain MRI 07/09/22 09:30 IMPRESSION: Negative MRI brain without intravenous contrast and without significant change when compared to CT head scan of 07/08/2022. Electronically Signed: Alejandro Terrazas MD at 10:34 EDT , Meaningful Use Info Meaningful Use Diagnoses (Choose all that apply): None applicable Discharge Plan Admission Admit Date/Time: 07/08/22 18:04 Attending Provider: Saleem Maza Primary Care Provider: Care Physician,No Primary Consulting Providers: Yvette Parrish Discharge Orders/Prescriptions Prescriptions: No Action escitalopram oxalate 10 MG tablet 15 mg PO DAILY Label Comments: mood stabilizer oxycodone 5 MG tablet 5 mg PO Q4H PRN PRN (Reason: Moderate Pain (pain scale 4-5)) Qty: 20 0RF Label Comments: moderate pain metronidazole 500 MG tablet 500 mg PO Q8H Qty: 15 0RF Label Comments: antibiotic ciprofloxacin HCl 250 MG tablet 250 mg PO BID Qty: 10 0RF Label Comments: antibiotic ondansetron HCl 8 MG tablet 8 mg PO Q8H PRN PRN (Reason: Nausea/Vomiting) Qty: 14 0RF Label Comments: nausea zolpidem 5 MG tablet 5 mg PO QHS PRN PRN (Reason: Insomnia) Qty: 20 0RF Label Comments: to help you sleep amitriptyline 50 mg Tablet 50 mg naproxen 500 mg tablet 500 mg Label Comments: TAKE 1 TABLET BY MOUTH TWICE DAILY NEEDED FOR PAIN, take this medication WITH FOOD Referrals / Follow Up: Care Physician,No Primary [Primary Care Provider] - Disposition Disposition (needs filled in before D/C Order can be placed): [facility] Unit Charges/Coding Visit Charges Inpatient E&M: 33026 Disch Hosp >30min
== END 2022-07-10 07:42 ==
LOC: ED 18:10 → PCU 18:16
PROVIDERS: Hospitalist; Admitting Provider Internal Medicine; Emergency Provider Emergency Medicine; Referring Provider Internal Medicine; Visit Provider Internal Medicine
DX: G92.8 Other toxic encephalopathy (principal); R10.32 Left lower quadrant pain; G47.00 Insomnia, unspecified; E78.5 Hyperlipidemia, unspecified; R03.0 Elevated blood-pressure reading, without diagnosis of hypertension; F32.A Depression, unspecified; Z79.899 Other long term (current) drug therapy; K21.9 Gastro-esophageal reflux disease without esophagitis; F41.9 Anxiety disorder, unspecified; F43.10 Post-traumatic stress disorder, unspecified
CPT/HCPCS: 36415; 36600; 51702; 70450; 70551; 71045; 74177; 80053; 80307; 81001; 82077; 82140; 82803; 83605; 83735; 84100; 84439; 84443; 84484; 85025; 87040; 93005; 96372; 96374; 96375; 96376; 97162; 97802; 99221; 99285; J7120; Q9967; A4216; G0378; J2405

== ENCOUNTER 2022-09-29 21:14 | Emergency (ER) | payer MEDICARE, SELFPAY ==
[2022-09-29 21:21] VITALS: BP 158/81; PULSE 82; RESP 16; TEMP 36.5; O2SAT 98; BMI 25.0
--- NOTE | 2022-09-29 21:32 | EDS_ITS ---
HPI History of Present Illness Chief Complaint: Dizziness Detail of Chief Complaint: Room spinning dizziness with associated nausea. Informant: patient and EMS Onset/Context/Timing Onset: Today Context: Sudden Onset Timing: Continuous Current Severity: Mild Maximum Severity: Moderate Narrative Narrative: 72-year-old female history of PTSD and vertigo. States she had an episode about a week ago. Today around 2 PM had sudden onset of room spinning dizziness with associated nausea and vomiting. No fever or chills. No falls or head injury. She denies any headache, chest pain, shortness of breath or abdominal pain. She denies any diarrhea or dysuria. No fever. No recent illness. Patient had an MRI several months ago of her brain which was unremarkable. She denies any trouble with her vision, her speech or moving her arms or legs. No weakness. No numbness. Prior similar symptoms: Yes Recent Illness/Hospitalization: No PFSH PFSH Medical History Anxiety Colitis Depression Diverticulitis Elevated blood pressure reading GERD (gastroesophageal reflux disease) HLD (hyperlipidemia) Hyperglycemia Insomnia Previous known suicide attempt PTSD (post-traumatic stress disorder) Home Medications escitalopram oxalate 10 mg tablet 15 mg PO DAILY 09/01/14 [History Last Taken 09/05/14 08:00] ciprofloxacin HCl 250 mg tablet 250 mg PO BID ##10 09/03/14 [Rx Last Taken 09/05/14 08:00] metronidazole 500 mg tablet 500 mg PO Q8H #15 tabs 09/03/14 [Rx Last Taken 09/05/14 13:00] oxycodone 5 mg tablet 5 mg PO Q4H PRN PRN Moderate Pain (pain scale 4-5) ##20 09/03/14 [Rx Last Taken 09/05/14 17:00] ondansetron HCl 8 mg tablet 8 mg PO Q8H PRN PRN Nausea/Vomiting ##14 09/07/14 [Rx Last Taken Unknown] zolpidem 5 mg tablet 5 mg PO QHS PRN PRN Insomnia ##20 09/07/14 [Rx Last Taken Unknown] amitriptyline 50 mg tablet 50 mg 07/08/22 [History Last Taken Unknown] naproxen 500 mg tablet 500 mg 07/08/22 [History Last Taken Unknown] meclizine 25 mg tablet 25 mg PO 4X/DAY PRN PRN Dizziness #20 tabs 09/29/22 [Rx Last Taken Unknown] ondansetron 4 mg disintegrating tablet 4 mg PO Q8H PRN nausea and vomiting #7 tabs 09/29/22 [Rx Last Taken Unknown] Allergy/AdvReac Type Severity Reaction Status Date / Time Penicillins AdvReac Rash Verified 09/29/22 21:24 Family History Other Dementia Social History household members: family housing: house other: Lives with one of her sisters who is unmarried Smoking Status: Never smoker alcohol intake: never substance use type: does not use ROS ROS ED ROS Narrative Room spinning dizziness. Nausea and vomiting. Review of Systems ROS Unobtainable: Denies due to encephalopathy Constitutional Constitutional ED: Denies chills or fever(s) Eyes Eyes: Denies blurry vision ENT ENT ED: Denies ear pain, rhinorrhea or sore throat Cardiovascular Cardiovascular: Denies chest pain Respiratory/Chest Respiratory/Chest: Denies cough or dyspnea Gastrointestinal Gastrointestinal: Reports nausea and vomiting; Denies abdominal pain, constipa tion, diarrhea or melena Genitourinary Genitourinary ED: Denies dysuria or hematuria Musculoskeletal Musculoskeletal: Denies arthralgias Integumentary Denies abscess Neurologic Neurologic: Denies headache(s) Psychiatric Psychiatric: Denies anxiety Endocrine Endocrinology: Denies cold intolerance Hematologic/Lymphatic Hematologic/Lymphatic: Reports none Allergic/Immunologic Allergic/Immunologic ED: Denies mouth swelling, tongue swelling or urticaria EXAM Physical Exam Narrative Exam Narrative: 72-year-old female vital signs are stable afebrile. Brought in by [facility]. They treated her with Zofran. She does not look septic toxic. She is in no distress. HEENT exam unremarkable atraumatic. Nontender. Pupils round reactive light. Extra motions are intact. No facial droop. Normal speech. Neck nontender. Lungs clear to auscultation. Heart regular rhythm rate about 80 no murmur. Chest were nontender. Abdomen soft nontender. No peritoneal signs. Moving all 4 extremities. 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 Dorsi plantarflexion intact. Neurologically she is awake and alert. Answering questions following commands. NIH score 0. With moving her head from the left to the right she gets much more dizzy and nauseated. Consistent with a positive Hallpike and vertigo. Const Vital Signs: 09/29/22 21:21 09/29/22 21:23 Temperature 97.7 F L Temperature Source Oral Pulse Rate 82 Respiratory Rate 16 Respiratory Effort Normal Respiratory Pattern Normal Blood Pressure 158/81 H Blood Pressure Mean 106 Pulse Ox 98 Oxygen Delivery Method Room Air Positive well nourished and well developed; Negative for obese, cachectic, contractures or unkempt General Appearance ED: well developed and NAD; Negative for unkempt, cachectic, contractures, cyanotic, diaphoretic or pallor Nutritional Appearance: Negative for cachectic or obese HEENT Reports moist mucous membranes; Denies dry mucous membranes Negative for trauma or tenderness Mouth ED: No dry mucous membranes Mouth: No dry mucous membranes Eyes PERRL and EOMs intact bilaterally General Eye ED: Negative for pale conjunctiva or scleral icterus Neck no lymphadenopathy, supple and no JVD General: Negative for tenderness Lymph Lymphatic: Negative for other Chest Wall inspection of chest normal and palpation of chest normal Chest: Negative for other Resp normal respiratory effort and clear to auscultation bilaterally Cardio regular rate, regular rhythm, S1 normal heart sound, S2 normal heart sound and no murmurs Palpation: Negative for palpable S3 Rate: Negative for bradycardia Rhythm: Negative for abnormal rhythm GI normal to inspection, nondistended, normoactive bowel sounds, non-tender, non- distended and no masses; Negative for hepatosplenomegaly Inspection: Negative for abdominal distention Auscultation: normoactive bowel sounds Palpation: soft; Negative for tender or guarding Bladder / Kidney Exam: No other Back/Spine no CVA tenderness General Back: Negative for CVA tenderness Cervical Spine: Negative for cervical spine tenderness Thoracic Spine / Upper Back: Negative for thoracic spinal tenderness Lumbar Spine / Lower Back: Negative for lumbar spinal tenderness Extremity normal to inspection General Extremety ED: Negative for edema or tenderness General Extremity: Negative for edema Neuro oriented x3, CN's II-XII intact bilaterally and no sensory deficits noted Sensorium / Orientation: alert; Negative for orientation impaired, lethargic or stuporous Motor Exam: strength 5/5 throughout; Negative for general weakness Psych mental status grossly normal Appearance: Negative for unkempt Attitude: No agitated Mood & Affect: Negative for depressed, anxious or tearful Skin no rashes or lesions noted, no wounds and skin turgor normal General Skin Exam: elasticity normal; Negative for jaundice or pallor Lesions: No lesion noted Rashes: No rashes noted Trauma: Negative for abrasion Wounds: Negative for wounds noted MDM MDM MDM Narrative Medical decision making narrative: 72-year-old female with vertigo-like symptoms. Room spinning with nausea and vomiting worse with head movement. Her neurologic exam is normal. She had a recent MRI that was negative. I do not think she needs any imaging. She does not have a headache and she has a completely normal neurologic exam. She will be treated with IV fluids, Zofran and IV Ativan. I will get screening labs due to her age. She will then be reassessed. Repeat exam at 10:37 PM patient doing well. Her nausea is resolved. Her vertigo is much much better. Her neurologic exam remains normal. Her NIH is 0. She will be given 1 p.o. Antivert here. 1 to go home with. A prescription for Zofran for nausea and Antivert. Follow-up with your doctor as needed. Return if worse. Lab Data Attestation: I reviewed the patient's lab results. Lab results narrative: CBC unremarkable. White count of 10. H&H of 13 and 39. Platelets 368. BMP shows a gap of 8. BUN and creatinine are 21 and 0.8. Glucose 134. Labs: Laboratory Results - last 24 hr 09/29/22 22:09 WBC 10.4 RBC 4.35 Hgb 13.2 Hct 39.1 MCV 89.9 MCH 30.3 MCHC 33.8 RDW Std Deviation 39.1 RDW Coeff of Gus 12.0 Plt Count 368 MPV 9.7 Immature Gran % (Auto) 0.500 Neut % (Auto) 81.2 H Lymph % (Auto) 13.0 L [place] % (Auto) 4.4 Eos % (Auto) 0.2 Baso % (Auto) 0.7 Absolute Neuts (auto) 8.5 H Absolute Lymphs (auto) 1.36 Nucleated RBC % 0 Sodium 138 Potassium 3.8 Chloride 102 Carbon Dioxide 28.0 Anion Gap 8 BUN 21 H Creatinine 0.86 Estim Creat Clear Calc 43.31 Est GFR (MDRD) Af Amer 83 Est GFR (MDRD) Non-Af 68 BUN/Creatinine Ratio 24.3 H Glucose 134 H Calcium 9.7 Discharge Plan Triage Chief Complaint: Dizziness ED Provider: Nikos Johnston Dx/Rx/DC Orders Clinical Impression: Vertigo Instructions: ED BPV Vertigo Prescriptions: New meclizine 25 mg tablet 25 mg PO 4X/DAY PRN PRN (Reason: Dizziness) Qty: 20 0RF ondansetron 4 mg tablet,disintegrating 4 mg PO Q8H PRN (Reason: nausea and vomiting) Qty: 7 0RF No Action escitalopram oxalate 10 MG tablet 15 mg PO DAILY Patient Comments: mood stabilizer oxycodone 5 MG tablet 5 mg PO Q4H PRN PRN (Reason: Moderate Pain (pain scale 4-5)) Qty: 20 0RF Patient Comments: moderate pain metronidazole 500 MG tablet 500 mg PO Q8H Qty: 15 0RF Patient Comments: antibiotic ciprofloxacin HCl 250 MG tablet 250 mg PO BID Qty: 10 0RF Patient Comments: antibiotic ondansetron HCl 8 MG tablet 8 mg PO Q8H PRN PRN (Reason: Nausea/Vomiting) Qty: 14 0RF Patient Comments: nausea zolpidem 5 MG tablet 5 mg PO QHS PRN PRN (Reason: Insomnia) Qty: 20 0RF Patient Comments: to help you sleep amitriptyline 50 mg Tablet 50 mg naproxen 500 mg tablet 500 mg Patient Comments: TAKE 1 TABLET BY MOUTH TWICE DAILY NEEDED FOR PAIN, take this medication WITH FOOD Primary Care Provider: Marci Galeano Referrals: Marci Galeano MD [Primary Care Provider] - 3-5 Days if not [facility] Doctor,Out of [Non-Staff] - Activity Restrictions/Additional Instructions: Meclizine also called Antivert for the dizziness. I would take 1 3-4 times a day for the next 2 days and then as needed after that. This will help with the dizziness. In the vertigo. Zofran as needed for nausea. You may swallow or let dissolve in your tongue. You only need to take that if you are having nausea. Follow-up with your doctor as needed. Return if worse. Disposition Disposition: Home, Self Care
[2022-09-29] MEDS: LORazepam 2 MG/ML Syringe 1 MG IV (22:06)
[2022-09-29] MEDS: Ondansetron 4 MG/2 ML Vial IV (22:07)
[2022-09-29 22:14] LABS: Absolute Lymphocyte Count 1.36 X10^3/uL (0.83-4.51); Absolute Neutrophil Count 8.5 X10^3/uL (2.0-7.7); Basophil# 0.07 X10^3/uL; Basophil% 0.7 % (0-1); Eosinophil# 0.02 X10^3/uL; Eosinophils% 0.2 % (0-5); Hematocrit 39.1 % (37-47); Hemoglobin 13.2 g/dL (12.0-15.0); Lymphocyte # 1.36 X10^3/ul (0.83-4.51); Mean Corp Hgb Conc 33.8 g/dL (32-36); Mean Corpuscular Hgb 30.3 pg (27.0-32.0); Mean Corpuscular Volume 89.9 fL (81-99); Mean Platelet Vol. 9.7 fl (6.2-12.0); Monocyte# 0.46 X10^3/uL; Monocyte% 4.4 % (0-10); NRBC Flagged by Analyzer 0 % (0-5); Neutrophil # 8.47 X10^3/uL (2.7-7.7); Neutrophil % 81.2 % (47-70); Platelet Count 368 K/mm3 (150-450); RBC Distribution Width SD 39.1 fl (35.1-43.9); Red Blood Count 4.35 M/mm3 (4.2-5.4); White Blood Count 10.4 K/mm3 (4.4-11.0)
[2022-09-29 22:28] LABS: Anion Gap 8 (5-15); BUN 21 mg/dL (7-18); BUN/Creat Ratio 24.3 RATIO (10-20); Calcium,Total 9.7 mg/dL (8.5-10.1); Chloride 102 mmol/L (98-107); Creatinine, Serum 0.86 mg/dL (0.55-1.02); EST Glomerular Filtration Rate 68 mL/min (>60); Est Glom Filt Rate - Afr Amer 83 mL/min (>60); Estimated Creatinine Clearance 43.31 ml/min; Glucose 134 mg/dL (74-106); Potassium 3.8 mmol/L (3.5-5.1); Sodium Level 138 mmol/L (136-145)
[2022-09-29] MEDS: Meclizine HCl 25 MG Tablet PO ×2 (22:54)
== END 2022-09-29 23:03 | disposition home or self-care (01) ==
PROVIDERS: Emergency Provider Emergency Medicine; PCP Internal Medicine; Visit Provider Emergency Medicine
DX: R42 Dizziness and giddiness (principal); E78.5 Hyperlipidemia, unspecified; R11.2 Nausea with vomiting, unspecified; K21.9 Gastro-esophageal reflux disease without esophagitis; Z79.899 Other long term (current) drug therapy
CPT/HCPCS: 80048; 85025; 96361; 96374; 96375; 99285; J7030; A4216; J2405

== ENCOUNTER → 2022-12-13 | Outpatient (CLI) | payer MEDICARE, SELFPAY ==
--- NOTE | 2022-12-13 15:05 | CT_ITS ---
STUDY: CT RIGHT ANKLE WITHOUT CONTRAST REASON FOR EXAM: Female, 72 years old. Ankle fracture RADIATION DOSAGE (If Supplied By Facility): CTDIvol = ( 15.35 ) mGy, DLP = ( 415.17 ) mGycm TECHNIQUE: Thin section transaxial imaging of the ankle was obtained, with sagittal and coronal reconstructed images. Individualized dose optimization techniques were used for this CT. COMPARISON: None. FINDINGS: Nondisplaced, fracture of the posterior tibial malleolus. There is an approximate 2 mm gap at the level of the articular surface. Nondisplaced avulsion fracture of the medial malleolus of the distal tibia. Comminuted transverse fracture of the distal fibula with overriding of the fracture fragments. Normal tibiotalar articulation and talar dome. Normal talus, calcaneus, navicular and cuboid tarsal bones. Normal subtalar, talonavicular and calcaneocuboid articulations. Normal navicular-cuneiform, cuneiform tarsal bones and intercuneiform articulations. Normal tarsometatarsal articulations and visualized metatarsi. Diffuse soft tissue swelling. CT/Extremity Lower without Contra IMPRESSION: Comminuted fracture of the posterior malleolus of the distal tibia as well as the medial malleolus. Transverse fracture of the distal fibular shaft with overriding of the fracture fragments. Diffuse soft tissue swelling. Electronically Signed: Dewey Baxter MD at 15:33 EDT ,
== END | disposition home or self-care (01) ==
LOC: CT 15:03
PROVIDERS: PCP Internal Medicine; Referring Provider Orthopaedic Surgery Sports Medicine; Visit Provider Orthopaedic Surgery Sports Medicine
DX: S82.891A Other fracture of right lower leg, initial encounter for closed fracture (principal); X58.XXXA Exposure to other specified factors, initial encounter
CPT/HCPCS: 73700